=== PATIENT | male | born 1930 | race Caucasian/White ===

== ENCOUNTER 2017-05-11 09:04 | Emergency (ER) | payer MEDICARE ==
[2017-05-11] MEDS ORDERED: Furosemide 40 MG/4 ML VIAL IVPUSH ONE (09:21)
[2017-05-11] MEDS: Sodium Chloride 0.9% 10 ML Syringe FLUSH PRN ×2 (10:03→12:22)
--- NOTE | 2017-05-11 11:37 | CR ---
INDICATION: Short of breath, edema legs, anasarca. CHEST: PA and lateral views of the chest were obtained 05/11/2017 and compared with 10/30/2016, again revealing the heart to be enlarged, but with an increase in left ventricular size suggested. The aorta is tortuous and calcified in the arch area and proximal descending portion. Diminished bone density is noted, compatible with osteoporosis. Flowing hyperostotic changes in the spine suggest the possibility of DISH. Flattened diaphragm leaf and prominent AP diameter, as well as hyperaeration all suggest COPD. Heavy markings at the lung bases likely are fibrotic in nature, but make it difficult to exclude a minimal degree of interstitial lung edema. No definite evidence of CHF is seen on the present study; however, findings should be correlated clinically in that regard. There is blunting of the right costophrenic angle and right posterior sulcus, suggesting a small pleural effusion. Thickening of the minor fissure is also noted, compatible with small pleural effusion on the right. It is difficult to exclude a minimal pneumonia and pleuritis at the right lung base with some heavy markings at the right lung base, somewhat heavier than on the previous study. IMPRESSION: 1. Findings suggest pneumonia and pleuritis at the right lung base. 2. COPD. 3. ASHD with cardiomegaly and increased heart size compared with the previous study. No definite evidence of CHF. 4. Osteoporosis. 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 MTDD
[2017-05-11] MEDS ORDERED: Bumetanide 1 MG/4 ML MDV IVPUSH ONE (11:58)
[2017-05-11] MEDS ORDERED: hydrOXYzine HCl 25 MG Tab PO ONE (12:10)
[2017-05-11 12:24] VITALS: BP 109/59
--- NOTE | 2017-05-12 02:48 | ER ---
DATE SEEN: 05/11/2017 SEEN: The patient was seen at 0928 hours. CHIEF COMPLAINT: Scrotal and lower abdominal discomfort secondary to increasing swelling. HISTORY OF PRESENT ILLNESS: This 86-year-old resident of [facility], comes in with 2 to 3-day history of gradually increasing swelling in his scrotum. The swelling has caused pain and discomfort. He has pain to gentle touch and/or just walking. He has had mild cough. Denies orthopnea, but has dyspnea on walking short distances. No dyspnea with talking. Denies chest pain, irregular heartbeat, previous myocardial infarction. He has had previous documentation of chronic kidney disease, stage IV with BUN 89 and a creatinine of 3.8 in November 2016. The patient arrived by taxi. 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 He has been treated for congestive heart failure with carvedilol 25 mg b.i.d. and Lasix 40 mg b.i.d. and Bumex dose indeterminate plus he has chronic obstructive lung disease, he was treated with albuterol and is insulin dependent, using Lantus and t.i.d. Lasix. Patient has been seen by the staff at [facility] and had Coban wraps placed in his lower extremities to diminish the swelling in his lower extremities, but this has resulted in progressive build up fluid proximal to the lower extremities, Coban wrap. He has had congestive heart failure for years. Current weight is 240 pounds at one time, two months ago. He was down to 210 pounds. CURRENT MEDICATIONS: 1. Aspirin 81 mg daily. 2. Insulin NovoLog 10 units at breakfast and 15 units at lunch and 4 units at supper. 3. Large Lantus 20 units b.i.d. Other medications: 1. Ferrous sulfate 325 mg daily. 2. Vitamin B12 1000 mg daily. 3. Lasix 40 mg b.i.d. 4. Finasteride 5 mg daily. 5. Flomax 0.5 mg daily. 6. Vistaril p.o. p.r.n. 7. Latanoprost dose indeterminate. 8. Brimonidine (Alphagan) 0.1% solution. ALLERGIES: Sulfa and antibiotics. PAST SURGICAL HISTORY: Left distal foot amputation and partial colectomy for colon cancer. PAST MEDICAL HISTORY: He has previous history for myocardial infarction with inferior and anterior myocardial infarction. No stroke. He has chronic obstructive lung disease, is an old smoker, congestive heart failure, insulin- dependent diabetes, chronic kidney disease stage IV, new decubitus on his buttocks area, previous documented cardiomegaly, and congestive heart failure. PHYSICAL EXAMINATION: VITAL SIGNS: Blood pressure 120/85, heart rate 72, respirations 20, oxygen saturation 97% on room air, temperature is 36.4 degrees centigrade, weight 108.8 kilos (up from his previous 99.7 kg). GENERAL: Unshaven, overweight man, in mild distress, mild shortness of breath, poor dentition. Pharynx without erythema. HEENT: PERRLA intact. NECK: Without bruits. No jugular venous distention. LUNGS: Scattered rales at bases of lungs. HEART: S1, S2. S2 greater than S1. No arrhythmia. ABDOMEN: Markedly increased abdominal girth. Scar from xiphoid to pubic symphysis. No guarding or rebound. Bowel sounds hypoactive. No hepatosplenomegaly. When he lays down, he gets mildly short of breath. Anasarca to his sternum (xiphoid). EXTREMITIES: Lower extremities, extensive pedal edema. There is a wrap of Coban in bilateral lower extremities, which diminished his edema, but he has anasarca to his sternum. The anasarca is markedly firm in lower extremities. DERMIS: The patient has mild decubitus left lateral sacrococcygeal and coccygeal area and mild stool sign. : Examination of his testes is groaning extensive edema, very sensitive to touch, foreskin overlaps his glans of his penis. His foreskin is extensively swollen. No erythema no redness noted. No ulcers noted. ABDOMEN: Bowel sounds hypoactive at present. LABORATORY DATA: White count 6900, PMNs 73, lymphocytes 11, monos 10, eos 4, hemoglobin 12.7 RDW elevated at 17.2. Complete metabolic panel; sodium 136, potassium 4.2, chloride 101, CO2 of 27, BUN 55, creatinine 3.4, BUN and creatinine ratio 16, GFR estimated 17, glucose 184, alkaline phosphatase slightly elevated at 133, BNP is 2080 (in November it was 1080 and in November 2016 the patient's creatinine was 3.4 and BUN was 89), troponin 0.03. Urinalysis few bacteria, few squamous. 30 protein. Chest x-ray, cardiomegaly. No effusion noted. Heart size unchanged from November 2016 chest x-ray. EKG sinus rhythm. Occasional PAC. ASSESSMENT: 1. Congestive heart failure, cardiorenal failure more cardiac, congestive heart failure with low ejection fraction, probably right-sided and left- sided heart failure. 2. Extensive anasarca secondary to the latter and chronic kidney disease, with his GFR of 17. 3. Congestive heart failure with BNP 2007, increased since November 2016. 4. No evidence for urinary tract infection. 5. Decubitus left parents sacral area. 6. The patient wants full code DNR and DNI. 7. His EKG does not have an old inferior or anterior myocardial infarction. He has left bundle-branch block with few PACs. 8. Chronic obstructive pulmonary disease. 9. Normotensive. 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 11.Insulin-dependent diabetes with associated chronic kidney disease, and peripheral neuropathy as well as artery disease. The patient's status discussed with Dr. Andersen, plumber maintenance [place]. She feels that perhaps the patient has gotten right and left sided heart failure with potential need for dialysis.The patient stated he would like to go to dialysis if needed it. The patient will be transferred to Dr. Kapoor's service the hospitalist by ambulance. The patient in the hospital received 40 mg Lasix IV with 200 mL urine output and 1 mg Bumex later IV. He became slightly anxious was given a dose of Vistaril 50 mg orally. /[id number] BARBARA/DUNIA ZELAYA
== END 2017-05-11 13:05 ==
LOC: FB.ED 09:04
DX: E11.22 Type 2 diabetes mellitus with diabetic chronic kidney disease (principal); N18.4 Chronic kidney disease, stage 4 (severe); I50.9 Heart failure, unspecified; J44.9 Chronic obstructive pulmonary disease, unspecified; I25.2 Old myocardial infarction; Z79.82 Long term (current) use of aspirin; Z79.4 Long term (current) use of insulin; Z88.2 Allergy status to sulfonamides; Z88.1 Allergy status to other antibiotic agents
CPT/HCPCS: 36415; 71020; 80053; 81001; 83735; 83880; 84100; 84484; 85025; 93005; 96374; 96375; 99285; A9270; J1940; J7050; 99284; S0171